=== PATIENT | female | born 1985 ===

== ENCOUNTER 2018-09-04 09:26 | Observation (INO) | payer MEDICAID, OTHER ==
[2018-09-04 09:36] VITALS: RESP 18
[2018-09-04] MEDS ORDERED: Sodium Chloride 0.9% 1,000 ML IV STA (09:52)
--- NOTE | 2018-09-04 09:52 | ED PDOC ---
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 Pt is having difficulty swallowing, talking, and difficulty breathing when lying flat. Pt took motrin at 1am this morning. Associated fever and intermittent nausea. Unable to tolerate much PO, but is attempting to take small sips of water. Denies headache, vision changes, nasal congestion, ear pain, cough, SOB, chest pain, palpitations, abdominal pain, diarrhea, rash. During history, patient is not able to talk above a whisper, nod yes or no to most questions; secondary to throat pain and swelling. Past Medical History - Provider Review Nursing Documentation Reviewed: Yes - Infectious Disease Hx of Infectious Diseases: None - Pulmonary Hx Asthma: Yes - HEENT Other/Comment: sorethroat - Genitourinary/Gynecological Other/Comment: d and C - Psychiatric Hx Substance Use: No - Anesthesia Hx Anesthesia: Yes Hx Anesthesia Reactions: No Hx Malignant Hyperthermia: No Family/Social History Family/Social History: No Known Family HX Smoking Status: Never Smoked Hx Alcohol Use: Yes Frequency of alcohol use: Socially Hx Substance Use: No Allergies/Home Meds Allergies/Adverse Reactions: Allergies No Known Allergies Allergy (Verified 09/04/18 09:36) Home Medications: Home Meds Medication Instructions Recorded Confirmed No Known Home Med 09/04/18 09/04/18 Review of Systems - Review of Systems Constitutional: Fevers Eyes: Normal. absent: Vision Changes ENT: Voice Changes, Sore Throat. absent: Hearing Changes, Tinnitus, Rhinorrhea, Epistaxis, Sinus Congestion Respiratory: Normal. absent: SOB, Cough Cardiovascular: Normal. absent: Chest Pain, Palpitations Gastrointestinal: Nausea, Appetite Changes. absent: Abdominal Pain, Diarrhea, Vomiting Genitourinary Female: Normal Musculoskeletal: Neck Pain (and swelling). absent: Arthralgias, Back Pain Skin: Normal. absent: Rash Neurological: Normal. absent: Headache, Dizziness Endocrine: Normal Hemo/Lymphatic: Adenopathy (neck) Psychiatric: Normal Physical Exam Vital Signs Reviewed: Yes Vital Signs Temp Pulse Resp BP Pulse Ox 09/04/18 09:31 100 F H 101 H 18 136/99 H 99 Temperature: Afebrile Blood Pressure: Hypertensive Pulse: Tachycardic Respiratory Rate: Normal Appearance: Positive for: Well-Appearing, Non-Toxic, Comfortable Pain Distress: Moderate Mental Status: Positive for: Alert and Oriented X 3 - Systems Exam Head: Present: Atraumatic, Normocephalic Pupils: Present: PERRL Extroacular Muscles: Present: EOMI Conjunctiva: Present: Normal Mouth: Present: Moist Mucous Membranes Pharnyx: Present: ERYTHEMA, EXUDATE, TONSILS ENLARGED, Peritonsilar Swelling, Soft Palate/Uvular Edema. No: Uvular Deviation Nose (External): Present: Atraumatic Nose (Internal): Present: Normal Inspection Neck: Present: Lymphadenopathy (bilateral swollen, tenderness to anterior cervical). No: Normal Range of Motion (decreased secondary to throat pain), Meningeal Signs Respiratory/Chest: Present: Clear to Auscultation, Good Air Exchange. No: Respiratory Distress, Accessory Muscle Use, Decreased Breath Sounds Cardiovascular: Present: Regular Rate and Rhythm, Normal S1, S2. No: Murmurs Abdomen: Present: Normal Bowel Sounds. No: Tenderness, Distention, Peritoneal Signs, Rebound, Guarding Back: Present: Normal Inspection Upper Extremity: Present: Normal Inspection. No: Cyanosis, Edema Lower Extremity: Present: Normal Inspection. No: Edema Neurological: Present: GCS=15, CN II-XII Intact, Speech Normal Skin: Present: Warm, Dry, Normal Color. No: Rashes Psychiatric: Present: Alert, Oriented x 3, Normal Insight, Normal Concentration Medical Decision Making ED Course and Treatment: 10:15 Initial Plan: * Solumedrol * Toradol * IVF * CBC, CMP * Strep, Monostat * CT neck soft tissue with contrast CBC: WBC 16 with left shift; otherwise wnl CMP: wnl Rapid strep: positive Monostat: pending Patient reports decreased pain after medications, but continues to have difficulty breathing while lying flat. No change in exam at this time. Continues to have fever, will give tylenol. CT neck: Bilateral peritonsillar abscesses. Right: 1.1cm, Left: 0.9cm. Pharyngitis. 11:[address] Church, ENT, who recommends IV Clindamycin, IV Solumedrol, and admission to the hospital for observation and possible drainage of abscess. 11:30 Spoke with hospitalist, Dr. Shi, who accepts patient for admission for observation. Consult will be ordered for Dr. Church, ENT, who will see patient in the hospital. Dr. Shi will come to ED to evaluate pt, decision on admission location pending airway assessment. 12:45 Dr. Shi evaluated pt in ED with residents. Decision made to admit pt to med- surg floor for observation. Disposition/Present on Arrival - Present on Arrival Any Indicators Present on Arrival: No History of DVT/PE: No History of Uncontrolled Diabetes: No Urinary Catheter: No History of Decub. Ulcer: No History Surgical Site Infection Following: None - Disposition Have Diagnosis and Disposition been Completed?: Yes Diagnosis: Strep pharyngitis, Peritonsillar abscess Disposition: HOSPITALIZED Disposition Time: 11:30 Patient Plan: Admission Patient Problems: Current Active Problems Problem Status Onset Oropharyngeal dysphagia Acute Peritonsillar abscess Acute Peritonsillar cellulitis Acute Strep pharyngitis Acute Throat pain Acute Condition: STABLE
[2018-09-04 10:11] LABS: BASO # 0.01 K/mm3 (0.0-2.0); BASO % 0.1 % (0.0-3.0); EOS % 0.1 % (1.5-5.0); GRAN # 13.82 (1.4-6.5); GRAN % 85.1 % (50.0-68.0); HEMOGLOBIN 13.8 g/dL (12.0-16.0); LYMPH # 0.8 (1.2-3.4); LYMPH % 5.1 % (22.0-35.0); MEAN CELL VOLUME 95.3 fl (80.0-105.0); MEAN CORPUSCULAR HEMOGLOBIN 32.5 pg (25.0-35.0); MEAN CORPUSCULAR HGB CONC 34.2 g/dl (31.0-37.0); MEAN PLATELET VOLUME 9.7 fl (7.0-11.0); MONO # 1.6 (0.1-0.6); MONO % 9.6 % (1.0-6.0); RBC 4.24 10^6/uL (3.5-6.1); RED CELL DISTRIBUTION WIDTH 11.9 % (11.5-14.5); WHITE BLOOD COUNT 16.2 10^3/uL (4.5-11.0)
[2018-09-04 10:20] LABS: ALB/GLOB RATIO 1.1 (1.1-1.8); ALBUMIN 4.4 g/dL (3.0-4.8); ALT/SGPT 25 U/L (7-56); AST/SGOT 23 U/L (14-36); BLOOD UREA NITROGEN 6 mg/dL (7-21); CALCIUM 9.5 mg/dL (8.4-10.5); GFR NON-AFRICAN AMERICAN > 60
[2018-09-04] MEDS ORDERED: Iohexol 350 MG/100 ML VIAL ONE (10:39)
--- NOTE | 2018-09-04 11:45 | CT ---
Date of service: 09/04/2018 PROCEDURE: CT NECK WITH CONTRAST HISTORY: r/o abscess COMPARISON: None available. TECHNIQUE: CT of the neck with intravenous contrast. Coronal and sagittal reformats generated. Intravenous contrast dose: Radiation dose: Total exam DLP = 432.31 mGy-cm. This CT exam was performed using one or more of the following dose reduction techniques: Automated exposure control, adjustment of the mA and/or kV according to patient size, and/or use of iterative reconstruction technique. FINDINGS: NASOPHARYNX: Unremarkable. SUPRAHYOID NECK: Prominence of the nasopharyngeal soft tissues with a questionable fluid collection measuring 1.1 cm in the right tonsillar pillar (2:32). Additional questionable 9 millimeter hypodense lesion measuring 9 millimeters in the left tonsillar pillars. INFRAHYOID NECK: Unremarkable larynx, hypopharynx, and supraglottic space. Vocal cords intact. MASS: None. GLANDS: Parotid and submandibular glands unremarkable. Normal size thyroid gland, without nodule. LYMPH NODES: Multiple bilateral borderline enlarged lymph nodes but with a 1.5 centimeter right jugulodigastric lymph node, as well as a 1.2 centimeter left jugulodigastric lymph node which are nonspecific but likely reactive. CERVICAL SPINE: No fracture or focal lesion. VASCULAR STRUCTURES: Unremarkable. OTHER FINDINGS: Findings limited due to streak artifact from dental hardware. IMPRESSION: Prominence of the nasopharyngeal soft tissues with a questionable fluid collection measuring 1.1 cm in the right tonsillar pillar (2:32). Additional questionable 9 millimeter hypodense lesion measuring 9 millimeters in the left tonsillar pillars. Findings compatible with a an acute pharyngitis with possible bilateral abscesses. Findings limited due to streak artifact from dental hardware.
[2018-09-04] MEDS ORDERED: Clindamycin 600mg/50ml D5W 600 MG/50 ML VIAL IVPB STA (12:03)
[2018-09-04] MEDS ORDERED: Acetaminophen 650mg/20.3ml solution UD PO STA (12:16)
[2018-09-04] MEDS ORDERED: Acetaminophen 160 mg/5 ml UD ONE (12:34)
[2018-09-04] MEDS ORDERED: Acetaminophen 650mg/20.3ml solution UD ONE (12:35)
[2018-09-04] MEDS ORDERED: Sodium Chloride 0.9% 1,000 ML IV SCH (13:30)
[2018-09-04 13:57] VITALS: O2SAT 98
[2018-09-04] MEDS: Clindamycin in D5W 300 MG/50 ML BAG IV SCH ×2 (13:57→22:06)
--- NOTE | 2018-09-04 15:20 | CP.PCM.CON ---
History of Present Illness - History of Present Illness History of Present Illness: 33 y/o female with past medical hx of asthma presented to the ED with a 2 day hx of throat swelling/dysphagia and pain. Pt reports hx of tonsil infections/abscess as child. Pt seen and examined by ENT feels better since being given medicine from ED. Review of Systems - Constitutional Constitutional: As Per HPI - EENT Eyes: As Per HPI Ears: As Per HPI Nose/Mouth/Throat: As Per HPI - Breasts Breasts: As Per HPI - Cardiovascular Cardiovascular: As Per HPI - Respiratory Respiratory: As Per HPI - Gastrointestinal Gastrointestinal: As Per HPI - Integumentary Integumentary: As Per HPI - Neurological Neurological: As Per HPI - Psychiatric Psychiatric: As Per HPI - Endocrine Endocrine: As Per HPI - Hematologic/Lymphatic Hematologic: As Per HPI Past Patient History - Infectious Disease Hx of Infectious Diseases: None - Past Social History Smoking Status: Never Smoked - PULMONARY Hx Asthma: Yes - HEENT Other/Comment: sorethroat - GENITOURINARY/GYNECOLOGICAL Other/Comment: d and C - PSYCHIATRIC Hx Substance Use: No - SURGICAL HISTORY Hx Surgeries: No - ANESTHESIA Hx Anesthesia: Yes Hx Anesthesia Reactions: No Hx Malignant Hyperthermia: No Meds Allergies/Adverse Reactions: Allergies Allergy/AdvReac Type Severity Reaction Status Date / Time No Known Allergies Allergy Verified 09/04/18 09:36 - Medications Medications: Current Medications Acetaminophen (Tylenol 325mg Tab) 650 mg PO Q6H PRN PRN Reason: Fever >100.4 F Clindamycin Phosphate (Clindamycin 300 Mg/50 Ml-D5w) 300 mg in 50 mls @ 50 mls/hr IV Q8H [facility]; Protocol Last Admin: 09/04/18 13:57 Dose: 50 mls/hr Sodium Chloride (Sodium Chloride 0.9%) 1,000 mls @ 150 mls/hr IV .Q6H40M NAFISA Ketorolac Tromethamine (Toradol) 15 mg IVP Q6H PRN PRN Reason: Pain, moderate (4-7) Pantoprazole Sodium (Protonix Inj) 40 mg IVP DAILY NAFISA Physical Exam - Constitutional Appears: Well, Non-toxic - Head Exam Head Exam: ATRAUMATIC, NORMAL INSPECTION - Eye Exam Eye Exam: EOMI, Normal appearance Pupil Exam: NORMAL ACCOMODATION - ENT Exam ENT Exam: Mucous Membranes Moist Additional comments: Ears: wnl/canals patent, TM's wnl Nose: wnl throat: tonsil erythema and enlargement bilaterally, palate bulging right side (this is where pt also reports the majority of her pain) after informed consent lidocaine 2% was infiltrated into right palate. 25g needle used to inject 1cc lidocaine, 18G needle used to withdraw approx 6cc purulnece from peritonsil space. Pt tolerated the procedure well. - Neck Exam Neck exam: Positive for: Normal Inspection. Negative for: Lymphadenopathy Results - Vital Signs Recent Vital Signs: Last Vital Signs Temp 99.1 F 09/04/18 13:57 Pulse 94 H 09/04/18 13:57 Resp 18 09/04/18 13:57 BP 132/88 09/04/18 13:57 Pulse Ox 98 09/04/18 13:57 - Labs Result Diagrams: 09/04/18 09:50 09/04/18 09:50 Labs: Laboratory Results - last 24 hr 09/04/18 09/04/18 09/04/18 09:50 09:50 09:55 WBC 16.2 H RBC 4.24 Hgb 13.8 Hct 40.4 MCV 95.3 MCH 32.5 MCHC 34.2 RDW 11.9 Plt Count 238 MPV 9.7 Gran % 85.1 H Lymph % (Auto) 5.1 L [place] % (Auto) 9.6 H Eos % (Auto) 0.1 L Baso % (Auto) 0.1 Gran # 13.82 H Lymph # (Auto) 0.8 L [place] # (Auto) 1.6 H Eos # (Auto) 0.0 Baso # (Auto) 0.01 Sodium 137 Potassium 4.6 Chloride 100 Carbon Dioxide 28 Anion Gap 13 BUN 6 L Creatinine 0.6 L Est GFR ( Amer) > 60 Est GFR (Non-Af Amer) > 60 Random Glucose 112 H Calcium 9.5 Total Bilirubin 0.8 AST 23 ALT 25 Alkaline Phosphatase 82 Total Protein 8.2 Albumin 4.4 Globulin 3.8 Albumin/Globulin Ratio 1.1 Grp A Beta Strep Ag Positive H Assessment & Plan (1) Peritonsillar abscess Status: Acute (2) Peritonsillar cellulitis Status: Acute (3) Throat pain Status: Acute (4) Oropharyngeal dysphagia Status: Acute (5) Strep pharyngitis Status: Acute - Assessment and Plan (Free Text) Plan: Incision and drainage performed with 18g needle. Pt tolerated the procedure well. Toradol for pain. Pt to continue iv abx and steroid, tomorrow may send home on PO ABX and medrol dose pack and tylenol with codeine for pain. She was instructed to f/u with [facility] - Date & Time Date: 09/04/18 Time: 15:19
[2018-09-04 16:37] VITALS: BMI 31.3
--- NOTE | 2018-09-04 17:46 | CP.PCM.HP ---
<GrzegorzPrabhu - Last Filed: 09/04/18 21:40> History of Present Illness - History of Present Illness History of Present Illness: Prabhu Lantigua DO PGY-1 Hospitalist H&P Note for: Dr. Vazquez CC: Sore throat Pt is a 33 yo F with pmhx of asthma, recurrent strep infections (20 years ago), who presents to the ED with a sore throat, and difficulty swallowing or chewing for the past 2 days. She states that she noticed that about 2 days ago she began having pain with talking or swallowing and has progressively gotten worse. She states that she has had strep throat in the past, last episode 20 years ago, and states it feel similar to that experience. She states that she also has some difficulty breathing when she lays flat, but has no SOB with exertion. She denies any sick contacts at work or home. She states that she is having pain with swallowing solid or liquid food, but can still swallow. She rates the pain at a 5/10 currently but was a 7/10 upon arrival to the ED, and it radiates to the ears. She currently admits to fevers, chills, difficulty breathing with lying flat, odynophagia and painful speech and currently denies chest pain, runny nose, cough, headache, SOB with exertion, abd pain, n/v, c/d dysuria or hematuria. Pmhx: Asthma, recurrent strep infections (20 years ago) Pshx: D&C for miscarriage Meds: Denies All: NKDA Social: Denies any tobacco use, social etoh use and denies illicit drug use Fam Hx: Mom: HTN, Dad: Unclear heart disease Present on Admission - Present on Admission Any Indicators Present on Admission: No Review of Systems - Review of Systems All systems: reviewed and no additional remarkable complaints except Review of Systems: 12 point ROS reviewed and negative except for whats noted in HPI Past Patient History - Infectious Disease Hx of Infectious Diseases: None - Past Social History Smoking Status: Never Smoked - CARDIAC Hx Cardiac Disorders: No - PULMONARY Hx Respiratory Disorders: Yes Hx Asthma: Yes - NEUROLOGICAL Hx Neurological Disorder: No - HEENT Hx HEENT Problems: No Other/Comment: sorethroat - RENAL Hx Chronic Kidney Disease: No - ENDOCRINE/METABOLIC Hx Endocrine Disorders: No - HEMATOLOGICAL/ONCOLOGICAL Hx Blood Disorders: No - INTEGUMENTARY Hx Dermatological Problems: No - MUSCULOSKELETAL/RHEUMATOLOGICAL Hx Falls: No - GASTROINTESTINAL Hx Gastrointestinal Disorders: No - GENITOURINARY/GYNECOLOGICAL Hx Genitourinary Disorders: No Other/Comment: d and C - PSYCHIATRIC Hx Substance Use: No - SURGICAL HISTORY Hx Surgeries: No - ANESTHESIA Hx Anesthesia: Yes Hx Anesthesia Reactions: No Hx Malignant Hyperthermia: No Meds Allergies/Adverse Reactions: Allergies Allergy/AdvReac Type Severity Reaction Status Date / Time No Known Allergies Allergy Verified 09/04/18 09:36 Physical Exam - Constitutional Appears: Well, Non-toxic, No Acute Distress - Head Exam Head Exam: ATRAUMATIC, NORMAL INSPECTION, NORMOCEPHALIC - Eye Exam Eye Exam: EOMI, Normal appearance, PERRL - Expanded ENT Exam Expanded Mouth exam: normal external inspection. absent: drooling, muffled voice Throat exam: Post Pharyngeal Erythema, Tonsillar Erythema, Tonsillar Exudate - Neck Exam Neck exam: Positive for: Full Rom, Lymphadenopathy (cervical chain lymph nodes). Negative for: Meningismus - Respiratory Exam Respiratory Exam: Clear to Auscultation Bilateral, NORMAL BREATHING PATTERN. absent: Accessory Muscle Use, Decreased Breath Sounds, Rales, Rhonchi, Wheezes, Respiratory Distress, Stridor - Cardiovascular Exam Cardiovascular Exam: RRR, +S1, +S2. absent: Gallop, Rubs - GI/Abdominal Exam GI & Abdominal Exam: Normal Bowel Sounds, Soft. absent: Guarding, Hernia, Tenderness - Extremities Exam Extremities exam: Positive for: full ROM, normal capillary refill, normal inspection, pedal pulses present. Negative for: calf tenderness, pedal edema - Back Exam Back exam: NORMAL INSPECTION. absent: CVA tenderness (L), CVA tenderness (R) - Neurological Exam Neurological exam: Alert, Oriented x3 - Psychiatric Exam Psychiatric exam: Normal Affect, Normal Mood - Skin Skin Exam: Dry, Intact, Normal Color, Warm Results - Vital Signs Recent Vital Signs: Last Vital Signs Temp 99.1 F 09/04/18 13:57 Pulse 92 H 09/04/18 15:39 Resp 18 09/04/18 15:39 BP 132/88 09/04/18 13:57 Pulse Ox 98 09/04/18 13:57 - Labs Result Diagrams: 09/04/18 09:50 09/04/18 09:50 Labs: Laboratory Results - last 24 hr 09/04/18 09/04/18 09/04/18 09:50 09:50 09:55 WBC 16.2 H RBC 4.24 Hgb 13.8 Hct 40.4 MCV 95.3 MCH 32.5 MCHC 34.2 RDW 11.9 Plt Count 238 MPV 9.7 Gran % 85.1 H Lymph % (Auto) 5.1 L [place] % (Auto) 9.6 H Eos % (Auto) 0.1 L Baso % (Auto) 0.1 Gran # 13.82 H Lymph # (Auto) 0.8 L [place] # (Auto) 1.6 H Eos # (Auto) 0.0 Baso # (Auto) 0.01 Sodium 137 Potassium 4.6 Chloride 100 Carbon Dioxide 28 Anion Gap 13 BUN 6 L Creatinine 0.6 L Est GFR ( Amer) > 60 Est GFR (Non-Af Amer) > 60 Random Glucose 112 H Calcium 9.5 Total Bilirubin 0.8 AST 23 ALT 25 Alkaline Phosphatase 82 Total Protein 8.2 Albumin 4.4 Globulin 3.8 Albumin/Globulin Ratio 1.1 Grp A Beta Strep Ag Positive H Assessment & Plan - Assessment and Plan (Free Text) Assessment: Pt is a 33 yo F with pmhx of asthma, recurrent strep infections (20 years ago), who presents to the ED with a sore throat, and difficulty swallowing or chewing for the past 2 days. ENT consulted, will start pt on abx and steroids to help with tonsiluar swelling. Plan: 1. Strep pharyngitis: - NPO @ this time as pt is having difficulty swallowing - Clindamycin 300 IV Q8 - Solumedrol 60 Q6 IV - Tylenol 650 Q6 for fever - Toradol 30 Q6 for pain - NS 150cc/hr while NPO - Blood culture - ENT consult - Aspiration precaution 2. PPX: DVT: SCD's GI: Protonix IV Case seen and discussed with Dr. George Lantigua DO Internal Medicine Resident PGY-1 <Lay Vazquez - Last Filed: 09/05/18 19:04> Results - Vital Signs Recent Vital Signs: Last Vital Signs Temp 98.4 F 09/05/18 07:00 Pulse 79 09/05/18 07:00 Resp 18 09/05/18 07:00 BP 136/97 H 11/17/18 07:00 Pulse Ox 98 09/05/18 07:00 - Labs Result Diagrams: 09/05/18 06:00 09/05/18 06:00 Labs: Laboratory Results - last 24 hr 09/05/18 09/05/18 06:00 06:00 WBC 21.1 H D RBC 4.31 Hgb 13.8 Hct 40.5 MCV 94.0 MCH 32.0 MCHC 34.1 RDW 11.6 Plt Count 272 MPV 9.8 Gran % 93.8 H Lymph % (Auto) 3.9 L [place] % (Auto) 2.3 Eos % (Auto) 0.0 L Baso % (Auto) 0.0 Gran # 19.80 H Lymph # (Auto) 0.8 L [place] # (Auto) 0.5 Eos # (Auto) 0.0 Baso # (Auto) 0.01 Neutrophils % (Manual) 89 H Band Neutrophils % 2 Lymphocytes % (Manual) 5 L Monocytes % (Manual) 4 Platelet Evaluation Normal Sodium 139 Potassium 4.6 Chloride 102 Carbon Dioxide 26 Anion Gap 16 BUN 11 Creatinine 0.5 L Est GFR ( Amer) > 60 Est GFR (Non-Af Amer) > 60 Random Glucose 145 H Calcium 10.0 Total Bilirubin 0.5 AST 22 ALT 24 Alkaline Phosphatase 86 Total Protein 8.0 Albumin 4.2 Globulin 3.7 Albumin/Globulin Ratio 1.1 Attending/Attestation - Attestation I have personally seen and examined this patient.: Yes I have fully participated in the care of the patient.: Yes I have reviewed all pertinent clinical information: Yes
[2018-09-05 07:21] LABS: BASO # 0.01 K/mm3 (0.0-2.0); GRAN % 93.8 % (50.0-68.0); HEMOGLOBIN 13.8 g/dL (12.0-16.0); LYMPH # 0.8 (1.2-3.4); LYMPH % 3.9 % (22.0-35.0); MEAN CORPUSCULAR HGB CONC 34.1 g/dl (31.0-37.0); MEAN PLATELET VOLUME 9.8 fl (7.0-11.0); MONO # 0.5 (0.1-0.6); MONO % 2.3 % (1.0-6.0); PLATELET COUNT 272 10^3/uL (120.0-450.0); RBC 4.31 10^6/uL (3.5-6.1); RED CELL DISTRIBUTION WIDTH 11.6 % (11.5-14.5); WHITE BLOOD COUNT 21.1 10^3/uL (4.5-11.0)
[2018-09-05 07:45] LABS: ALB/GLOB RATIO 1.1 (1.1-1.8); ALBUMIN 4.2 g/dL (3.0-4.8); ALT/SGPT 24 U/L (7-56); AST/SGOT 22 U/L (14-36); BLOOD UREA NITROGEN 11 mg/dL (7-21); GFR NON-AFRICAN AMERICAN > 60
[2018-09-05] MEDS: Clindamycin in D5W 300 MG/50 ML BAG IV SCH ×2 (08:23→13:10)
[2018-09-05 09:28] VITALS: BP 136/97; PULSE 79; TEMP 98.4
[2018-09-05 09:50] LABS: BAND 2 % (0-2); LYMPHOCYTE 5 % (22.0-35.0); MONOCYTE 4 % (1.0-6.0); NEUTROPHIL 89 % (50.0-70.0)
[2018-09-05 09:51] LABS: PLATELET ESTIMATE NORMAL (NORMAL)
--- NOTE | 2018-09-05 16:14 | CP.PCM.DIS ---
<Benito Lantiguahammad - Last Filed: 09/05/18 16:09> Provider - Provider Date of Admission: 09/04/18 13:04 Attending physician: Jaylin Shi MD Time Spent in preparation of Discharge (in minutes): 45 Diagnosis - Discharge Diagnosis (1) Oropharyngeal dysphagia Status: Acute (2) Peritonsillar abscess Status: Acute (3) Peritonsillar cellulitis Status: Acute (4) Strep pharyngitis Status: Acute (5) Throat pain Status: Acute Hospital Course - Lab Results Lab Results: Micro Results 09/04/18 12:15 Blood Blood Culture - Preliminary NO GROWTH AFTER 24 HOURS 09/04/18 12:00 Blood Blood Culture - Preliminary NO GROWTH AFTER 24 HOURS Most Recent Lab Values WBC 21.1 10^3/uL (4.5-11.0) H D 09/05/18 06:00 RBC 4.31 10^6/uL (3.5-6.1) 09/05/18 06:00 Hgb 13.8 g/dL (12.0-16.0) 09/05/18 06:00 Hct 40.5 % (36.0-48.0) 09/05/18 06:00 MCV 94.0 fl (80.0-105.0) 09/05/18 06:00 MCH 32.0 pg (25.0-35.0) 09/05/18 06:00 MCHC 34.1 g/dl (31.0-37.0) 09/05/18 06:00 RDW 11.6 % (11.5-14.5) 09/05/18 06:00 Plt Count 272 10^3/uL (120.0-450.0) 09/05/18 06:00 MPV 9.8 fl (7.0-11.0) 09/05/18 06:00 Gran % 93.8 % (50.0-68.0) H 09/05/18 06:00 Lymph % (Auto) 3.9 % (22.0-35.0) L 09/05/18 06:00 Dubois % (Auto) 2.3 % (1.0-6.0) 09/05/18 06:00 Eos % (Auto) 0.0 % (1.5-5.0) L 09/05/18 06:00 Baso % (Auto) 0.0 % (0.0-3.0) 09/05/18 06:00 Gran # 19.80 (1.4-6.5) H 09/05/18 06:00 Lymph # (Auto) 0.8 (1.2-3.4) L 09/05/18 06:00 Dubois # (Auto) 0.5 (0.1-0.6) 09/05/18 06:00 Eos # (Auto) 0.0 (0.0-0.7) 09/05/18 06:00 Baso # (Auto) 0.01 K/mm3 (0.0-2.0) 09/05/18 06:00 Neutrophils % (Manual) 89 % (50.0-70.0) H 09/05/18 06:00 Band Neutrophils % 2 % (0-2) 09/05/18 06:00 Lymphocytes % (Manual) 5 % (22.0-35.0) L 09/05/18 06:00 Monocytes % (Manual) 4 % (1.0-6.0) 09/05/18 06:00 Platelet Evaluation Normal (NORMAL) 09/05/18 06:00 Sodium 139 mmol/L (132-148) 09/05/18 06:00 Potassium 4.6 mmol/L (3.6-5.0) 09/05/18 06:00 Chloride 102 mmol/L (98-107) 09/05/18 06:00 Carbon Dioxide 26 mmol/L (21-33) 09/05/18 06:00 Anion Gap 16 (10-20) 09/05/18 06:00 BUN 11 mg/dL (7-21) 09/05/18 06:00 Creatinine 0.5 mg/dl (0.7-1.2) L 09/05/18 06:00 Est GFR ( Amer) > 60 09/05/18 06:00 Est GFR (Non-Af Amer) > 60 09/05/18 06:00 Random Glucose 145 mg/dL (70-110) H 09/05/18 06:00 Calcium 10.0 mg/dL (8.4-10.5) 09/05/18 06:00 Total Bilirubin 0.5 mg/dL (0.2-1.3) 09/05/18 06:00 AST 22 U/L (14-36) 09/05/18 06:00 ALT 24 U/L (7-56) 09/05/18 06:00 Alkaline Phosphatase 86 U/L (38-126) 09/05/18 06:00 Total Protein 8.0 g/dL (5.8-8.3) 09/05/18 06:00 Albumin 4.2 g/dL (3.0-4.8) 09/05/18 06:00 Globulin 3.7 gm/dL 09/05/18 06:00 Albumin/Globulin Ratio 1.1 (1.1-1.8) 09/05/18 06:00 Grp A Beta Strep Ag Positive (NEGATIVE) H 09/04/18 09:55 - Hospital Course Hospital Course: Upon Admission: Pt is a 33 yo F with pmhx of asthma, recurrent strep infections (20 years ago), who presents to the ED with a sore throat, and difficulty swallowing or chewing for the past 2 days. She states that she noticed that about 2 days ago she began having pain with talking or swallowing and has progressively gotten worse. She states that she has had strep throat in the past, last episode 20 years ago, and states it feel similar to that experience. She states that she also has some difficulty breathing when she lays flat, but has no SOB with exertion. She denies any sick contacts at work or home. She states that she is having pain with swallowing solid or liquid food, but can still swallow. She rates the pain at a 5/10 currently but was a 7/10 upon arrival to the ED, and it radiates to the ears. She currently admits to fevers, chills, difficulty breathing with lying flat, odynophagia and painful speech and currently denies chest pain, runny nose, cough, headache, SOB with exertion, abd pain, n/v, c/d dysuria or hematuria. Hospital Course: Per ENT pt was started on steroid 60mg Q6 to help with the swelling. ENT was able to come in later in the day and drain the abscess which improved the pts condition. Pt was started on pain medication and was continued on the steroids into the next day. Pt states that she is now able to swallow foods without too much difficulty and states that she is no longer having any issues with SOB. ENT cleared the pt after the drainage and asked the pt to follow up with [facility] [place] for follow up. ENT also recommended PO abx and steroid taper. Pt stated that she could tolerate her diet. The medical plan for discharge home was explained to the pt, and the pt expressed understanding and agreement of the medical plan. All of pts questions and janine rns were addressed prior to d/c. Upon D/C: Pt was given the following instructions. Please follow up with the [facility] at [facility] for your appointment. They can be reached at . They will contact you about an appointment within next week. Please follow up with [facility] within this week. Complete a course of Augmentin for 10 days for your strep throat, please take the antibiotics as directed. We are also prescribing a steroid taper called a medrol dose pack. Please take this medication exactly as directed as the dosages and number of pills will change throughout the completion of the prescription. You are being given Tylenol with codeine - for pain. Use it only if you need it. If you have any new, returning or worsening symptoms please return to the Emergency Department. Discharge Exam - Head Exam Head Exam: ATRAUMATIC, NORMAL INSPECTION, NORMOCEPHALIC - Eye Exam Eye Exam: EOMI, Normal appearance, PERRL - ENT Exam ENT Exam: Mucous Membranes Moist Additional comments: tonsilar swelling and exudate have improved from previous exam, pt is able to talk, swallow and breath without noted difficulty or pain. - Neck Exam Neck exam: Full Rom, Lymphadenopathy (improved from previous exam) - Respiratory Exam Respiratory Exam: NORMAL BREATHING PATTERN, UNREMARKABLE. absent: Accessory Muscle Use, Chest Wall Tenderness, Decreased Breath Sounds, Rales, Rhonchi, Wheezes, Respiratory Distress - Cardiovascular Exam Cardiovascular Exam: RRR, +S1, +S2. absent: Gallop, Rubs - GI/Abdominal Exam GI & Abdominal Exam: Normal Bowel Sounds, Soft, Unremarkable. absent: Rebound, Rigid, Tenderness - Extremities Exam Extremities exam: normal capillary refill, normal inspection, pedal pulses present - Back Exam Back exam: NORMAL INSPECTION. absent: CVA tenderness (L), CVA tenderness (R) - Neurological Exam Neurological exam: Alert, Oriented x3 - Psychiatric Exam Psychiatric exam: Normal Affect, Normal Mood - Skin Skin Exam: Dry, Intact, Normal Color, Warm Discharge Plan - Discharge Medications Prescriptions: Acetaminophen with Codeine [Tylenol with Codeine #3 Tablet] 1 each PO Q6 PRN #10 tablet PRN Reason: Pain, Severe (8-10) Amoxicillin/Clavulanate [Augmentin 875 MG-125 MG] 1 tab PO BID 10 Days #20 tab Methylprednisolone [Medrol Dose Pack (21 tabs)] 4 mg PO DAILY #21 mg - Follow Up Plan Condition: STABLE Disposition: HOME/ ROUTINE Instructions: Sore Throat, Adult (DC), Peritonsillar Abscess, Adult (DC) Additional Instructions: Please follow up with the [facility] Dr [facility] at [facility] for your appointment. They can be reached at . They will contact you about an appointment within next week. Please follow up with [facility] within this week. Complete a course of Augmentin for 10 days for your strep throat, please take the antibiotics as directed. We are also prescribing a steroid taper called a medrol dose pack. Please take this medication exactly as directed as the dosages and number of pills will change throughout the completion of the prescription. You are being given Tylenol with codeine - for pain. Use it only if you need it. If you have any new, returning or worsening symptoms please return to the Emergency Department. Referrals: [facility] [place] [Outside] <Janusz Dallas - Last Filed: 09/05/18 18:43> Provider - Provider Date of Admission: 09/04/18 13:04 Attending physician: Jaylin Shi MD Hospital Course - Lab Results Lab Results: Micro Results 09/04/18 12:15 Blood Blood Culture - Preliminary NO GROWTH AFTER 24 HOURS 09/04/18 12:00 Blood Blood Culture - Preliminary NO GROWTH AFTER 24 HOURS Most Recent Lab Values WBC 21.1 10^3/uL (4.5-11.0) H D 09/05/18 06:00 RBC 4.31 10^6/uL (3.5-6.1) 09/05/18 06:00 Hgb 13.8 g/dL (12.0-16.0) 09/05/18 06:00 Hct 40.5 % (36.0-48.0) 09/05/18 06:00 MCV 94.0 fl (80.0-105.0) 09/05/18 06:00 MCH 32.0 pg (25.0-35.0) 09/05/18 06:00 MCHC 34.1 g/dl (31.0-37.0) 09/05/18 06:00 RDW 11.6 % (11.5-14.5) 09/05/18 06:00 Plt Count 272 10^3/uL (120.0-450.0) 09/05/18 06:00 MPV 9.8 fl (7.0-11.0) 09/05/18 06:00 Gran % 93.8 % (50.0-68.0) H 09/05/18 06:00 Lymph % (Auto) 3.9 % (22.0-35.0) L 09/05/18 06:00 Dubois % (Auto) 2.3 % (1.0-6.0) 09/05/18 06:00 Eos % (Auto) 0.0 % (1.5-5.0) L 09/05/18 06:00 Baso % (Auto) 0.0 % (0.0-3.0) 09/05/18 06:00 Gran # 19.80 (1.4-6.5) H 09/05/18 06:00 Lymph # (Auto) 0.8 (1.2-3.4) L 09/05/18 06:00 Dubois # (Auto) 0.5 (0.1-0.6) 09/05/18 06:00 Eos # (Auto) 0.0 (0.0-0.7) 09/05/18 06:00 Baso # (Auto) 0.01 K/mm3 (0.0-2.0) 09/05/18 06:00 Neutrophils % (Manual) 89 % (50.0-70.0) H 09/05/18 06:00 Band Neutrophils % 2 % (0-2) 09/05/18 06:00 Lymphocytes % (Manual) 5 % (22.0-35.0) L 09/05/18 06:00 Monocytes % (Manual) 4 % (1.0-6.0) 09/05/18 06:00 Platelet Evaluation Normal (NORMAL) 09/05/18 06:00 Sodium 139 mmol/L (132-148) 09/05/18 06:00 Potassium 4.6 mmol/L (3.6-5.0) 09/05/18 06:00 Chloride 102 mmol/L (98-107) 09/05/18 06:00 Carbon Dioxide 26 mmol/L (21-33) 09/05/18 06:00 Anion Gap 16 (10-20) 09/05/18 06:00 BUN 11 mg/dL (7-21) 09/05/18 06:00 Creatinine 0.5 mg/dl (0.7-1.2) L 09/05/18 06:00 Est GFR ( Amer) > 60 09/05/18 06:00 Est GFR (Non-Af Amer) > 60 09/05/18 06:00 Random Glucose 145 mg/dL (70-110) H 09/05/18 06:00 Calcium 10.0 mg/dL (8.4-10.5) 09/05/18 06:00 Total Bilirubin 0.5 mg/dL (0.2-1.3) 09/05/18 06:00 AST 22 U/L (14-36) 09/05/18 06:00 ALT 24 U/L (7-56) 09/05/18 06:00 Alkaline Phosphatase 86 U/L (38-126) 09/05/18 06:00 Total Protein 8.0 g/dL (5.8-8.3) 09/05/18 06:00 Albumin 4.2 g/dL (3.0-4.8) 09/05/18 06:00 Globulin 3.7 gm/dL 09/05/18 06:00 Albumin/Globulin Ratio 1.1 (1.1-1.8) 09/05/18 06:00 Grp A Beta Strep Ag Positive (NEGATIVE) H 09/04/18 09:55 Attending/Attestation - Attestation I have personally seen and examined this patient.: Yes I have fully participated in the care of the patient.: Yes I have reviewed all pertinent clinical information, including history, physical exam and plan: Yes Notes (Text): 09/05/18 18:40 Medical record note made by the resident after discussion with my direction and input after the patient was personally seen and examined by me. I have reviewed the chart and agree that the record accurately reflects by personal performance of the history, physical exam, data review, and medical decision-making, in the course for the patient. I have also personally directed the plan of care. 33 yrs old female SP I/D of tonsillar abscess, she is afebrile and is tolerating diet. She is on room air and is not dyspnic. She will be discharged home on oral Augmentin and tapering dose of steroid. She will follow up with ENT and PCP. Management plan was discussed in detail with patient. Education was provided. 09/05/18 18:42
== END 2018-09-05 15:58 | disposition home or self-care (01) ==
LOC: ED 09:26 → ERH 13:04 → 5RSO 14:37
PROVIDERS: ADMIT Internal Medicine; ATTEND Internal Medicine
DX: J36 Peritonsillar abscess (principal); R13.12 Dysphagia, oropharyngeal phase; J45.909 Unspecified asthma, uncomplicated; Z82.49 Family history of ischemic heart disease and other diseases of the circulatory system; R40.2412 Glasgow coma scale score 13-15, at arrival to emergency department; B95.5 Unspecified streptococcus as the cause of diseases classified elsewhere
CPT/HCPCS: 36415; 42700; 70491; 80053; 85025; 86308; 87040; 87430; 96361; 96365; 96375; 99285; C9113; G0378; J1885; J2930; J7030; Q9967